=== PATIENT | female | born 1965 ===

== ENCOUNTER 2020-11-12 10:09 | Emergency (ER) | payer OTHER ==
[~2020-11-12] VITALS: Ht 157.5 cm; Wt 65.8 kg
== END 2020-11-12 11:11 | disposition home or self-care (01) ==
LOC: ER 10:09
DX: R19.7 Diarrhea, unspecified (principal); Z76.0 Encounter for issue of repeat prescription; Z98.84 Bariatric surgery status
CPT/HCPCS: 99281; A9270